=== PATIENT | female | born 1980 | race Two or more races ===

== ENCOUNTER 2021-09-21 14:27 | Emergency (ER) | payer SELFPAY ==
[~2021-09-21] VITALS: Ht 149.9 cm; Wt 59.0 kg
[2021-09-21 14:29] VITALS: BP 109/79
--- NOTE | 2021-09-21 14:50 | PHYS DOC ---
General Adult EDM: Chief Complaint: ABDOMINAL PAIN HPI: HPI: Patient is a 41 year old female with a history of gallbladder disease presenting today complaining of moderate right upper quadrant abdominal pain with nausea and vomiting that began in July but got worse last night. Patient states she was seen at [facility] in July 2021 and was diagnosed with gallbladder disease, she states she was sent home with pain medicine and nausea medicine. She states since last night the pain has been very intense. Patient denies any fever. Denies any chance she is . Patient is Prydeinig-speaking and snowboard instructor line is used for P[place]ig Review of Systems: Review of Systems: Constitutional: Denies fever or chills. [] Eyes: Denies change in visual acuity. [] HENT: Denies nasal congestion or sore throat. [] Respiratory: Denies cough or shortness of breath. [] Cardiovascular: Denies chest pain or edema. [] GI: Reports right upper quadrant abdominal pain with nausea and vomiting, denies diarrhea bloody stools : Denies dysuria. [] Musculoskeletal: Denies back pain or joint pain. [] Integument: Denies rash. [] Neurologic: Denies headache, focal weakness or sensory changes. [] Psychiatric: Denies depression or anxiety. [] Heart Score: C/O Chest Pain: N/A Risk Factors: Risk Factors: DM, Current or recent (<one month) smoker, HTN, HLP, family history of CAD, obesity. Risk Scores: Score 0 - 3: 2.5% MACE over next 6 weeks - Discharge Home Score 4 - 6: 20.3% MACE over next 6 weeks - Admit for Clinical Observation Score 7 - 10: 72.7% MACE over next 6 weeks - Early Invasive Strategies Physical Exam: PE: Constitutional: Well developed, well nourished, no acute distress, non-toxic appearance. [] HENT: Normocephalic, atraumatic, bilateral external ears normal, oropharynx moist, no oral exudates, nose normal. [] Eyes: PERRLA, EOMI, conjunctiva normal, no discharge. [] Neck: Normal range of motion, no tenderness, supple, no stridor. [] Cardiovascular:Heart rate regular rhythm, no murmur [] Lungs & Thorax: Bilateral breath sounds clear to auscultation [] Abdomen: Bowel sounds normal, soft, moderate tenderness on palpation of the right upper quadrant with positive Sheffield sign, no masses, no pulsatile masses. [] Skin: Warm, dry, no erythema, no rash. [] Back: No tenderness, no CVA tenderness. [] Extremities: No tenderness, no cyanosis, no clubbing, ROM intact, no edema. [] Neurologic: Alert and oriented X 3, normal motor function, normal sensory function, no focal deficits noted. [] Psychologic: Patient is crying out loud EKG: EKG: [] Radiology/Procedures: Radiology/Procedures: []PROCEDURE: ABDOMEN LTD EXAM: Abdomen sonogram. HISTORY: Right upper quadrant pain. TECHNIQUE: Sonographic imaging of the abdomen was performed. COMPARISON: None. FINDINGS: The liver is normal in size. No focal hepatic lesion is seen. The gallbladder wall is normal in thickness. There is suggestion of gallbladder sludge within the gallbladder neck. There is no pericholecystic fluid. There is a positive sonographic Sheffield's sign. The right kidney is unremarkable. The pancreas and inferior vena cava are obscured due to bowel gas. IMPRESSION: 1. Positive sonographic Sheffield's sign. There are no convincing secondary findings to suggest cholecystitis. There is suspected sludge within the gallbladder neck. 2. Obscured midline structures due to bowel gas. Electronically signed by: Obdulia Lee MD (09/21/2021 4:10 PM) [facility] DICTATED and SIGNED BY: OBDULIA LEE MD DATE: 09/21/21 [id number] 0 Course & Med Decision Making: Course & Med Decision Making Pertinent Labs and Imaging studies reviewed. (See chart for details) This a 41-year-old female patient presenting to the ED today with right upper quadrant abdominal pain, nausea and vomiting, symptoms began in July but got worse last night. CBC with a normal WBC, hemoglobin 10.0 with hematocrit of 33.3, bilirubin 0.4, AST 38, ALT 61, ALK 147. Ultrasound negative for cholecystitis, noted for possible sludge. I went to collect patient's urine. She was lying comfortably in bed with no pain complaints. She asked me in fluent Russian "when is my surgery"informed patient I will speak to the general surgeon about her ultrasound then would let her know. Asked patient for urine, she stated "its not necessary" informed her we need the urine to make sure she has no UTI neither is she . She put a fight verbally for a while stating she does not think the urine is necessary. I finally convinced her to go and urinate. Amazingly she chooses when to speak Russian or not UA positive for infection with moderate amount of leukocytes, 11-20 WBCs though it appears to have squamous cells epithelium I will go ahead and treat this patient d/c on cephalaxin I spoke to Dr. Mathew about patient's results and lab work, he requested patient be discharged home and follow-up with his clinic d/c on norco and zofran I spoke to patient using snowboard instructor line prior to discharge. Patient was somehow rude. When I told the there is no indication for her to have her gallbladder removed today, she stated that she needs to be discharged. Informed her we will discharge her with instructions to follow-up with the general surgeon, she stated she does not want to, she states she has her own doctor. Informed her the number will be on her paperwork and she can if she wants to. I offered her pain medicine for home use, she stated she does not want anything apart from UTI medicine she states she has alot of pain medicine and nausea medicines. I asked her where she got the pain medicine and nausea medicine she did not disclose. Lucy Disclaimer: Lucy Disclaimer: This electronic medical record was generated, in whole or in part, using a voice recognition dictation system. Departure Departure Impression: Primary Impression: Gallbladder sludge Additional Impression: UTI (urinary tract infection) Qualified Codes: N39.0 - Urinary tract infection, site not specified Disposition: HOME / SELF CARE / HOMELESS Condition: STABLE Referrals: MADELINE MATHEW MD Call his office on Thursday and set up a follow-up appointment Patient Instructions: Cholelithiasis, Urinary Tract Infection Additional Instructions: You were evaluated in the emergency room. Your gallbladder did not meet criteria for removal today. Please follow-up with the provided general surgeon as an outpatient. You have UTI. Take the prescribed antibiotics until completed. Scripts Hydrocodone Bit/Acetaminophen (HYDROCODONE-APAP 5-325 ) 1 Tab Tablet 1 TAB PO PRN Q6HRS PRN for PAIN, #14 TAB 0 Refills Prov: MÓNICA BYRD CUSTOMER SUPPORT COORDINATOR 09/21/21 Ondansetron (ONDANSETRON ODT) 4 Mg Tab.rapdis 1 TAB PO PRN Q6-8HRS, #16 TAB Prov: MÓNICA BYRD CUSTOMER SUPPORT COORDINATOR 09/21/21 Cephalexin (CEPHALEXIN) 500 Mg Tablet 1 TAB PO BID, #14 TAB Prov: MÓNICA BYRD CUSTOMER SUPPORT COORDINATOR 09/21/21 MÓNICA BYRD CUSTOMER SUPPORT COORDINATOR Sep 21, 2021 14:50
[2021-09-21] MEDS ORDERED: ONDANSETRON PF 4 MG/2 ML VIAL. IVP ONE (15:00)
[2021-09-21] MEDS ORDERED: fentaNYL PF VIAL 100 MCG/2 ML VIAL IVP ONE (15:00)
[2021-09-21 15:15] LABS: BASO % 1 % (0-3); EOS # 0.8 x10^3/uL (0.0-0.7); EOS % 14 % (0-3); HEMATOCRIT 33.3 % (36.0-47.0); LYMPH # 1.7 x10^3/uL (1.0-4.8); LYMPH % 31 % (24-48); MEAN CORPUSCULAR HEMOGLOBIN 19 pg (25-35); MEAN CORPUSCULAR HGB CONC 30 g/dL (31-37); MEAN CORPUSCULAR VOLUME 63 fL (79-100); MONO # 0.3 x10^3/uL (0.0-1.1); MONO % 6 % (0-9); NEUT # 2.8 x10^3/uL (1.8-7.7); NEUT % 49 % (31-73); PLATELET COUNT 293 x10^3/uL (140-400); RED BLOOD COUNT 5.25 x10^6/uL (3.50-5.40); RED CELL DISTRIBUTION WIDTH 19.5 % (11.5-14.5); WHITE BLOOD COUNT 5.7 x10^3/uL (4.0-11.0)
[2021-09-21 15:28] LABS: CALCIUM 8.2 mg/dL (8.5-10.1); CREATININE 0.6 mg/dL (0.6-1.0); GFR 110.2; POTASSIUM 4.3 mmol/L (3.5-5.1)
[2021-09-21 15:32] LABS: PLT ESTIMATE ADEQUATE (ADEQUATE)
[2021-09-21 15:33] LABS: ANISOCYTOSIS SLIGHT; HYPOCHROMIA MARKED; MICROCYTOSIS MARKED; OVALOCYTES PRESENT; POIKILOCYTOSIS SLIGHT
[2021-09-21 15:34] LABS: ALBUMIN 3.4 g/dL (3.4-5.0); ALBUMIN/GLOBULIN RATIO 0.8 (1.0-1.7); TOTAL BILIRUBIN 0.4 mg/dL (0.2-1.0); TOTAL PROTEIN 7.5 g/dL (6.4-8.2)
--- NOTE | 2021-09-21 16:13 | RAD ---
EXAM: Abdomen sonogram. HISTORY: Right upper quadrant pain. TECHNIQUE: Sonographic imaging of the abdomen was performed. COMPARISON: None. FINDINGS: The liver is normal in size. No focal hepatic lesion is seen. The gallbladder wall is jumana l in thickness. There is suggestion of gallbladder sludge within the gallbladder neck. There is no pe richolecystic fluid. There is a positive sonographic Sheffield's sign. The right kidney is unremarkable. The pancreas and inferior vena cava are obscured due to bowel gas. IMPRESSION: 1. Positive sonographic Sheffield's sign. There are no convincing secondary findings to suggest cholecys titis. There is suspected sludge within the gallbladder neck. 2. Obscured midline structures due to bowel gas. Electronically signed by: Obdulia Mayer MD (09/21/2021 4:10 PM) [facility]
[2021-09-21 17:33] LABS: BILIRUBIN,URINE NEGATIVE (NEG); CLARITY,URINE CLEAR; COLOR,URINE YELLOW; NITRITE,URINE NEGATIVE (NEG); PH,URINE 7.5 (<5.0-8.0); PROTEIN,URINE NEGATIVE (NEG-TRACE); UROBILINOGEN,URINE 0.2 mg/dL (0.2 mg/dL)
[2021-09-21 17:36] LABS: U PREG PATIENT NEGATIVE (NEG)
[2021-09-21 17:39] LABS: BACTERIA,URINE MODERATE /HPF (0-FEW); RBC,URINE 0 /HPF (0-2)
[2021-09-21 17:40] LABS: BARBITURATES NEG (NEG); BENZODIAZEPINES NEG (NEG); CANNABINOIDS NEG (NEG); COCAINE NEG (NEG); METHADONE NEG (NEG); OPIATES POS (NEG); PHENCYCLIDINE NEG (NEG)
[2021-09-21 17:41] LABS: AMPHETAMINE/METHAMPHETAMINE NEG (NEG)
[2021-09-21] MEDS ORDERED: ONDA4TAB12 PO (18:08)
[2021-09-21] MEDS ORDERED: CEPH500T PO (18:08)
[2021-09-21] MEDS ORDERED: HYDR-2761 PO (18:08)
== END 2021-09-21 18:18 | disposition home or self-care (01) ==
LOC: ER 14:27
DX: N39.0 Urinary tract infection, site not specified (principal); K82.8 Other specified diseases of gallbladder
CPT/HCPCS: 36415; 76705; 80053; 80307; 81001; 81025; 83690; 85025; 87086; 96374; 96375; 99284; G0480; J2405; J3010